=== PATIENT | female | born 1970 | race Caucasian/White ===

== ENCOUNTER 2020-06-30 14:49 | Outpatient (REF) | payer OTHER, SELFPAY ==
[2020-07-01 04:24] LABS: CT PCR NOT DETECTED (Not Detect.); NG PCR NOT DETECTED (Not Detect.)
[2020-07-01 09:33] LABS: BV Int Neg Control Negative (Negative); BV Int Pos Control Positive (Positive)
== END 2020-06-30 14:50 | disposition home or self-care (01) ==
LOC: HO.LAB 14:49
PROVIDERS: PCP Hospitalist; Visit Provider Obstetrics & Gynecology
DX: Z01.419 Encounter for gynecological examination (general) (routine) without abnormal findings (principal); N90.4 Leukoplakia of vulva; N63.20 Unspecified lump in the left breast, unspecified quadrant
CPT/HCPCS: 87480; 87491; 87510; 87591; 87660

== ENCOUNTER 2020-07-11 10:15 | Outpatient (REF) | payer OTHER, SELFPAY | END 2020-07-11 10:16 | disposition home or self-care (01) | LOC: HO.MAMMO 10:15 | PROVIDERS: PCP Hospitalist; Referring Provider Hospitalist; Visit Provider Surgery | DX: Z13.89 Encounter for screening for other disorder (principal) | CPT/HCPCS: 99202 ==

== ENCOUNTER 2020-07-23 08:02 | Outpatient (REF) | payer OTHER, SELFPAY | END 2020-07-23 08:03 | disposition home or self-care (01) | LOC: HO.LAB 08:02 | PROVIDERS: PCP Hospitalist; Visit Provider Obstetrics & Gynecology | DX: N90.4 Leukoplakia of vulva (principal) | CPT/HCPCS: 56605; 56606; 88305; 88312 ==

== ENCOUNTER 2020-07-25 12:49 | Outpatient (REF) | payer OTHER, SELFPAY ==
--- NOTE | 2020-07-25 12:52 | MM_ITS ---
EXAMINATION: MM DIAGNOSTIC DIGITAL BREAST TOMOSYNTHESIS, BILATERAL US DIAGNOSTIC ULTRASOUND BREAST, LEFT CLINICAL INFORMATION: New palpable mass posterior 4:00 left breast noted by patient 3-4 months. The lifetime risk of breast cancer based on the Tyrer-Cuzick Model is 11%. COMPARISON: Mammography: 06/16/2018, 06/14/2017, 06/01/2016, 05/28/2015 TECHNIQUE: Digital breast tomosynthesis is performed in both the craniocaudal and mediolateral oblique views along with computer-aided detection (CAD). Synthesized 2D images are generated from the tomosynthesis. Ultrasound left breast is targeted to the area of palpable concern posterior lower outer quadrant as well as a nodule more anteriorly outer left breast noted on mammography. Residual imaging and color Doppler are performed without and with harmonics. Patient is able to point to the area of concern at time of imaging. FINDINGS: Mammography: There are scattered areas of fibroglandular density (ACR BI-RADS breast composition Category b). The right breast is unremarkable. There is no interval mass or architectural abnormality. Neither breast shows abnormal calcifications. The bilateral axilla and skin contours are unremarkable. The left breast has a new circumscribed oval mass close to skin posterior 4:00 position corresponding to the palpable concern and measuring 1.2 x 1.0 x 0.9 cm. The left breast also has a new smaller circumscribed nodule more anteriorly left 3:30 o'clock position measuring 0.8 x 0.5 x 0.5 cm. Ultrasound: Ultrasound left breast targeted to the area of palpable concern demonstrates a circumscribed hypoechoic nodule at the deep dermis 5:00 position, 15 cm from nipple, measuring 1.2 x 1.1 x 0.8 cm. There are low level internal echoes and increased through-transmission of sound without peripheral or internal color flow. Subtle claw sign is demonstrated at the interface of the nodule with the deep dermis consistent with an intradermal lesion. This most likely represents a sebaceous or epidermal cyst. Additional imaging more anteriorly outer left breast demonstrates a hypoechoic circumscribed nodule 4:00 position 6 cm from nipple measuring 0.8 x 0.5 x 0.5 cm. Lesion is taller than wide. There is no increased through-transmission of sound. No associated color flow. This corresponds to the other new nodule left breast noted on mammography. Management recommendations: Results are discussed with the patient at time of visit. The palpable nodule posterior outer left breast corresponds to a benign intradermal lesion, likely sebaceous cyst or epidermal cyst. This would be amenable to surgical excision if clinically indicated. The smaller nodule left 4:00 position could represent a cyst although it is taller than wide and without increased through-transmission of sound. Recommend ultrasound-guided fine-needle aspiration to confirm a cyst. If this will not aspirate, then core sampling is recommended. Results are called to office ([facility]) for Dr. Mock on 07/25/2020. MM/MM tomosynthesis diagnostic BI IMPRESSION: 1. Left: Benign appearing sebaceous or epidermal cyst posterior outer breast corresponding to the area of palpable concern. There is a smaller circumscribed nodule more anteriorly outer left breast which although may represent a cyst but is without increased through-transmission of sound and has taller than wide orientation. 2. Right: No mammographic evidence of malignancy. ASSESSMENT: BI-RADS 4: Suspicious (subcategory 4A: Low suspicion for malignancy) RECOMMENDATION: 1. Palpable nodule posterior outer left breast may be managed based on the clinical impression. This would be amenable to surgical excision if clinically indicated. 2. Ultrasound-guided fine-needle aspiration smaller nodule left breast recommended to confirm a cyst. If the lesion will not aspirate, then conversion of procedure to core sampling would be recommended at same visit. This patient's information was entered into a reminder system with a target due date for their next mammogram.
== END 2020-07-25 12:50 | disposition home or self-care (01) ==
LOC: HO.MAMMO 12:49
PROVIDERS: PCP Hospitalist; Visit Provider Obstetrics & Gynecology
DX: N63.20 Unspecified lump in the left breast, unspecified quadrant (principal)
CPT/HCPCS: 76642; 77062; 77066

== ENCOUNTER → 2020-07-31 10:02 | Outpatient (BNVA) | payer OTHER, SELFPAY | PROVIDERS: PCP Hospitalist; Visit Provider Surgery | DX: R92.8 Other abnormal and inconclusive findings on diagnostic imaging of breast (principal) | CPT/HCPCS: 99202 ==

== ENCOUNTER 2020-08-05 07:58 | Outpatient (REF) | payer OTHER, SELFPAY ==
--- NOTE | 2020-08-05 | MM_ITS ---
EXAMINATION: US ULTRASOUND-GUIDED CYST ASPIRATION BREAST, LEFT MM DIAGNOSTIC DIGITAL MAMMOGRAPHY, LEFT CLINICAL INFORMATION: New circumscribed nodule left 3:30 o'clock position just under 1 cm, taller than wide and without increased through transmission of sound on targeted ultrasound. Aspiration recommended to confirm cyst and exclude solid lesion. COMPARISON: Mammography 07/25/2020, 06/16/2018; targeted left breast ultrasound 07/25/2020 FINDINGS: Proper informed consent is obtained from the patient after discussion of the procedure, potential risks and complications, and alternatives. Patient was given an opportunity for questions. The patient appeared to understand. The patient consented to the procedure and signed the consent form. LOCATION: Outer left breast 3:00-4:00 position, approximately 6 cm from nipple. GUIDANCE: Ultrasound-guided; aseptic technique. LESION: Circumscribed nearly anechoic nodule taller than wide measuring under 1 cm. APPROACH: Oblique lateral medial ANESTHESIA: 6 mL 1% lidocaine NEEDLE: 18-gauge spinal needle. ASPIRATION: The lesion resolved on puncture. Small amount of brown fluid aspirated into hub. Fluid discarded as per local practice. DIAGNOSTIC DIGITAL MAMMOGRAPHY, LEFT Left digital mammography is performed in CC and ML views. Computer assisted detection performed. FINDINGS: There are scattered areas of fibroglandular density (ACR BI-RADS breast composition Category b). The nodule anterior lateral left breast is no longer demonstrated consistent with the ultrasound-guided aspiration today. The sebaceous/epidermal cyst more posteriorly is beyond the [id number]. No gross hematoma. MM/MM diagnostic mammo unilat LT IMPRESSION: Incidental cyst anterior 3:00 position 4:00 left breast, resolved on aspiration. ASSESSMENT: BI-RADS 2: Benign RECOMMENDATION: Routine annual mammography screening. This patient's information was entered into a reminder system with a target due date for their next mammogram.
--- NOTE | 2020-08-05 08:04 | US_ITS ---
EXAMINATION: US ULTRASOUND-GUIDED CYST ASPIRATION BREAST, LEFT MM DIAGNOSTIC DIGITAL MAMMOGRAPHY, LEFT CLINICAL INFORMATION: New circumscribed nodule left 3:30 o'clock position just under 1 cm, taller than wide and without increased through transmission of sound on targeted ultrasound. Aspiration recommended to confirm cyst and exclude solid lesion. COMPARISON: Mammography 07/25/2020, 06/16/2018; targeted left breast ultrasound 07/25/2020 FINDINGS: Proper informed consent is obtained from the patient after discussion of the procedure, potential risks and complications, and alternatives. Patient was given an opportunity for questions. The patient appeared to understand. The patient consented to the procedure and signed the consent form. LOCATION: Outer left breast 3:00-4:00 position, approximately 6 cm from nipple. GUIDANCE: Ultrasound-guided; aseptic technique. LESION: Circumscribed nearly anechoic nodule taller than wide measuring under 1 cm. APPROACH: Oblique lateral medial ANESTHESIA: 6 mL 1% lidocaine NEEDLE: 18-gauge spinal needle. ASPIRATION: The lesion resolved on puncture. Small amount of brown fluid aspirated into hub. Fluid discarded as per local practice. DIAGNOSTIC DIGITAL MAMMOGRAPHY, LEFT Left digital mammography is performed in CC and ML views. Computer assisted detection performed. FINDINGS: There are scattered areas of fibroglandular density (ACR BI-RADS breast composition Category b). The nodule anterior lateral left breast is no longer demonstrated consistent with the ultrasound-guided aspiration today. The sebaceous/epidermal cyst more posteriorly is beyond the [id number]. No gross hematoma. US/US breast cyst asp LT IMPRESSION: Incidental cyst anterior 3:00 position 4:00 left breast, resolved on aspiration. ASSESSMENT: BI-RADS 2: Benign RECOMMENDATION: Routine annual mammography screening. This patient's information was entered into a reminder system with a target due date for their next mammogram.
== END 2020-08-05 07:59 | disposition home or self-care (01) ==
LOC: HO.MAMMO 07:58
PROVIDERS: PCP Hospitalist; Visit Provider Surgery
DX: R92.8 Other abnormal and inconclusive findings on diagnostic imaging of breast (principal)
CPT/HCPCS: 19000; 77065

== ENCOUNTER → 2020-08-12 14:47 | Outpatient (BNVA) | payer OTHER, SELFPAY | PROVIDERS: PCP Hospitalist; Visit Provider Surgery | DX: N63.20 Unspecified lump in the left breast, unspecified quadrant (principal) | CPT/HCPCS: 99212 ==

== ENCOUNTER → 2020-08-20 13:45 | Outpatient (BNVA) | payer OTHER, SELFPAY | PROVIDERS: PCP Hospitalist; Visit Provider Obstetrics & Gynecology | DX: Z76.89 Persons encountering health services in other specified circumstances (principal) ==

== ENCOUNTER 2020-08-21 11:48 | Outpatient (REF) | payer OTHER, SELFPAY ==
[2020-08-21 11:42] VITALS: BP 175/82; PULSE 76; RESP 19; TEMP 36.4; O2SAT 100; BMI 33.8
--- NOTE | 2020-08-21 13:07 | MHC.SHP ---
Pre-Procedural Eval Section A The patient is an INPATIENT: No Changes since office visit: Yes Patient answered all questions; No Cold of Flu in the past 2 weeks, No New Medical Problems and No Changes in Medication The History & Physical has been completed within 30 days and I have reviewed it.: Yes Section B Chief Complaint: left breast lump Allergies: Allergies Allergy/AdvReac Type Severity Reaction Status Date / Time No Known Allergies Allergy Unverified 08/20/20 13:46 Plan Diagnosis/Plan: Unchanged I have reviewed the history and physical and performed a pertinent physical examination on my patient. No changes have occurred unless specified.
--- NOTE | 2020-08-21 13:07 | PM.OP ---
Brief Operative Note Date of Service: 08/21/20 Pre-op diagnosis: Inclusion cyst left breast Post-op diagnosis: same Procedure: Excision of inclusion cyst left breast Implants: none Surgeon: Jeancarlos Braun MD Anesthesia: local Estimated blood loss (mL): 0 Pathology: other (inclusion cyst left breast) Condition: stable Disposition: other (home)
--- NOTE | 2020-08-21 13:08 | P.OP_ITS ---
Operative Note Operative Note Date of Service: 08/21/20 Narrative: Preoperative diagnosis: Epidermal inclusion cysts left breast Postoperative diagnosis: Same Procedure: Excision of epidermal inclusion cyst left breast Surgeon Jeancarlos Braun Anesthesia: Indications for procedure: 50-year-old female presenting with a palpable mass in the lower breast at the lower outer quadrant left side measuring approximately 1 cm in diameter. Workup with mammogram and ultrasound are consis tent with epidermal inclusion cyst. Patient presents for excision today. Operative findings: Patient was found to have a 1 cm round epidermal inclusion cyst Specimen: Epidermal inclusion cyst left breast Complications: None Estimated blood loss: None Procedure details: Patient was brought to the minor surgery suite placed in a supine position with her left arm over her head. The site of surgery as confirmed by the patient and informed consent confirmed. Skin was prepped with Betadine and draped in a sterile fashion. Local anesthesia consisting of lidocaine 1% with epinephrine was infiltrated over the cyst and elliptical fashion. Elliptical incision was then made with a scalpel carried out through subcutaneous tissue up to the cyst wall. Sharp dissection was then used to dis sect around the cyst wall. The lesion was excised and sent to pathology for further examination. After assuring adequate hemostasis the skin was closed using interrupted 4-0 nylon sutures. Sterile dressings consisting of 2 x 2 gauze and Tegaderm were then applied. The patient tolerated the procedure well. She was discharged to home in stable condition.
== END 2020-08-21 11:49 | disposition home or self-care (01) ==
LOC: HO.MS 11:48
PROVIDERS: PCP Hospitalist; Visit Provider Surgery
PROC: (CPT 11402; principal; 2020-08-21 11:50)
DX: N60.02 Solitary cyst of left breast (principal); I10 Essential (primary) hypertension; F31.9 Bipolar disorder, unspecified; R76.11 Nonspecific reaction to tuberculin skin test without active tuberculosis; Z79.899 Other long term (current) drug therapy
CPT/HCPCS: 11402; 88304

== ENCOUNTER → 2020-08-29 09:05 | Outpatient (BNVA) | payer OTHER, SELFPAY | PROVIDERS: PCP Hospitalist; Visit Provider Surgery | DX: N60.02 Solitary cyst of left breast (principal) | CPT/HCPCS: 99212 ==

== ENCOUNTER 2021-01-28 16:21 | Emergency (ER) | payer OTHER, SELFPAY ==
[2021-01-28 17:19] VITALS: BP 203/85; PULSE 85; RESP 18; TEMP 36.3; O2SAT 100; BMI 35.6
--- NOTE | 2021-01-28 21:11 | ED_ITS ---
HPI - Headache General Chief Complaint: Headache Stated Complaint: MIGRAINE Time Seen by Provider: 01/28/21 20:31 Source: patient Mode of arrival: ambulatory Limitations: no limitations History of Present Illness HPI Narrative: 50-year-old female with a past medical history of hypertension and migraines here with complaint of left-sided headache times 24 hours with photophobia and nausea. The pain radiates into the posterior left side of the head and neck. It is very typical for her migraines. No vomiting, vision changes, weakness, numbness or tingling. Patient tells me that she unfortunately does not have a primary care doctor and is trying to get 1. She ran out of all of her medications for her blood pressure and migraine 6 months ago and has not been taking any daily medications. She tells me in the past she has been on Imitrex and this has helped her significantly for her migraines. She was taking losartan, hydrochlorothiazide and lisinopril for her blood pressure but has not taken these for greater than 6 months. Related Data Home Medications Medication Instructions Recorded Confirmed buspirone 10 mg tablet 10 mg PO BID 06/30/20 08/29/20 cyclobenzaprine 10 mg tablet 10 mg PO BID-TID PRN 06/30/20 08/29/20 gabapentin 300 mg capsule 300 mg PO TID 06/30/20 08/29/20 hydrochlorothiazide 25 mg tablet 25 mg PO DAILY 06/30/20 08/29/20 lidocaine 5 % topical patch 1 patch TOPICAL Q12H 06/30/20 08/29/20 losartan 50 mg tablet 50 mg PO DAILY 06/30/20 08/29/20 nabumetone 750 mg tablet 750 mg PO BID 06/30/20 08/29/20 omeprazole 20 mg capsule,delayed 20 mg PO DAILY 06/30/20 08/29/20 release sumatriptan succinate 25 mg tablet mg PO 06/30/20 08/29/20 Previous Rx's Medication Instructions Recorded clotrimazole-betamethasone 1 1 applic TOPICAL BID 5 Days #45 g 06/30/20 %-0.05 % topical cream fluconazole 150 mg tablet 150 mg PO ONCE 1 Days #1 tab 06/30/20 metronidazole 0.75 % vaginal gel 1 appful VAGINAL DAILY 5 Days #70 g 07/11/20 hydrochlorothiazide 25 mg PO DAILY #30 tab 01/28/21 sumatriptan succinate [Imitrex] See Rx Instructions .ROUTE 01/28/21 .COMPLEX #5 tab Allergies Allergy/AdvReac Type Severity Reaction Status Date / Time No Known Allergies Allergy Unverified 08/20/20 13:46 Review of Systems Review of Systems: Yes all other systems are reviewed and are negative Constitutional: Constitutional: Reports no additional constitutional complaints, Denies body ache(s), Denies chills, Denies fever(s), Reports headache(s) and Denies weakness Eyes: Eyes: Reports no additional eye complaints and Denies change in vision Comments: Photophobia ENT: Reports system reviewed and no additional complaints, except as documented, Denies dizziness, Reports headache(s), Denies nasal congestion, Denies nasal discharge and Denies neck pain Cardiovascular: Cardiovascular: Reports no additional cardiovascular complaints, Denies chest pain, Denies leg edema and Denies dyspnea Respiratory: Respiratory: Reports no additional respiratory complaints, Denies cough and Denies dyspnea Gastrointestinal: Gastrointestinal: Reports no additional gastrointestinal complaints, Denies abdominal pain, Denies diarrhea, Reports nausea and Denies vomiting Genitourinary: Genitourinary: Reports no additional female genitourinary complaints and Denies urinary incontinence Musculoskeletal: Musculoskeletal: Reports no additional musculoskeletal complaints, Denies back pain, Denies arthralgias, Denies joint swelling, Denies neck pain, Denies numbness and Denies tingling Integumentary/Breasts: Skin/Breast: Reports system reviewed and no additional complaints, except as docu and Denies rash Neurologic: Reports system reviewed and no additional complaints, except as documented, Denies Abnormal speech present, Denies dizziness, Reports headache(s), Denies numbness, Denies tingling and Denies weakness [facility] Past Medical History Attestation statement: The following information was validated with the patient. Source: old records reviewed and nursing notes reviewed Medical History Anxiety Bipolar 1 disorder Cyst of left breast Fibromyalgia HTN (hypertension) Insomnia Lichen sclerosus PPD positive Vulvar leukoplakia Surgical History History of tubal ligation Social History Social History Alcohol intake: current Alcohol intake frequency: holidays/special occasions only Advance Directives: No Advance Directives Information Provided: No Patient : No Sexual orientation: Straight/Heterosexual Gender identity: female Physical Exam Vital Signs: Vital Signs: Last Vital Signs Temp 97.4 F 01/28/21 17:19 Pulse 85 01/28/21 17:19 Resp 18 01/28/21 17:19 BP 203/85 H 01/28/21 17:19 Pulse Ox 100 01/28/21 17:19 Body Mass Index 35.6 Const: General: cooperative, healthy appearing, comfortable and no acute distress Orientation/consciousness: patient oriented x3 Limitations: no limitations HENMT: Head: Yes normal to inspection Ears: hearing grossly normal bilaterally General nose exam: Normal external nose present Face and sinus: Yes normal facial exam Mouth: Normal oral and palatal mucosa present Throat: Yes posterior oropharynx normal Eyes: General: appearance normal, both eyes and all related structures Pupils: Equal, round and reactive pupils present Neck: Neck: Yes normal visual inspection, Yes full ROM, Yes no lymphadenopathy and Yes no meningeal signs Chest: Chest palpation & inspection: normal inspection of the chest Resp: Effort & Inspection: normal respiratory effort Auscultation: clear to auscultation bilaterally Cardio: Rate: regular rate Rhythm: regular rhythm Peripheral pulses: Peripheral pulses 2+ throughout GI: Inspection: Yes normal to inspection Palpation (GI): Soft to palpation and nontender Auscultation: normal bowel sounds Back/Spine/Pelvis: Thoracic/Lumbar Spine: thoracic and lumbar spine normal to inspection Skin: General skin exam: no rashes or lesions noted Neuro: General: patient oriented x3, no meningeal signs, no focal motor deficits and normal sensation to monofilament Cranial nerves: Yes CN's II-XII intact bilaterally, Yes Equal, round and reactive pupils present, Yes Bilaterally intact EOM present, Yes Nystagmus not present, Yes Normal facial strength present and Yes Midline tongue present Cognition (Neuro): normal cognition Speech: No Abnormal speech present Gait exam (Neuro): Normal gait present Motor exam (neuro): 5/5 motor strength present throughout Sensory Exam: Normal double simultaneous stimulation for sensation Extrem: General: Yes normal to inspection Course Course Course Narrative: 50-year-old female here with left-sided migraine with nausea and photophobia which feels exactly like her migraines which she had been taking Imitrex were but unfortunately ran out and does not have a primary care doctor to refill her medications. She received a dose of Imitrex here in the emergency department and feels improved. She has normal neurological exam. She is mildly hypertensive but tells me she ran out of all her blood pressure medications and has not had them for greater than 6 months because she does not have a primary care doctor. We reviewed her medication list which included losartan, hydrochlorothiazide lisinopril. I am hesitant to prescribe all of her blood pressure medications as she has not had them for more than 6 months. We agreed to re-start a single blood pressure medication and she will call tomorrow morning to establish a primary care doctor. Reviewed worrisome signs and symptoms and when to return to the emergency department. Comfortable discharge home. MDM - Headache MDM Narrative Medical decision making narrative: Asymptomatic hypertension Differential Diagnosis Differential diagnosis: Likely migraine and tension headache Medical Records Attestation: I reviewed the patient's medical records. Lab Data Attestation: I reviewed the patient's lab results. Discharge Plan Discharge Clinical Impression: Migraine, Hypertension Patient Disposition: Home, Self-Care Instructions: Migraine Headache (ED), Hypertension (ED) Additional Instructions: Avoid migraine triggers increase fluids, rest YOU absolutely need to call your doctor for a follow-up to re-start your medications Prescriptions: New sumatriptan succinate [Imitrex] 25 mg tablet See Rx Instructions .ROUTE .COMPLEX Qty: 5 RF: 0 hydrochlorothiazide 25 mg tablet 25 mg PO DAILY Qty: 30 RF: 0 No Action metronidazole [Metrogel Vaginal] 0.75 % gel 1 appful vaginal DAILY 5 Days Qty: 70 RF: 0 hydrochlorothiazide 25 mg tablet 25 mg PO DAILY RF: 0 cyclobenzaprine 10 mg tablet 10 mg PO BID-TID PRN (Reason: muscle spasm) RF: 0 gabapentin 300 mg capsule 300 mg PO TID RF: 0 lidocaine 5 % adhesive patch,medicated 1 patch topical Q12H RF: 0 sumatriptan succinate 25 mg tablet PO RF: 0 nabumetone 750 mg tablet 750 mg PO BID RF: 0 losartan 50 mg tablet 50 mg PO DAILY RF: 0 omeprazole 20 mg capsule,delayed release(DR/EC) 20 mg PO DAILY RF: 0 buspirone 10 mg tablet 10 mg PO BID RF: 0 fluconazole 150 mg tablet 150 mg PO ONCE 1 Days Qty: 1 RF: 0 clotrimazole-betamethasone 1-0.05 % cream 1 applic topical BID 5 Days Qty: 45 RF: 0 Referrals: Angie Maldonado NP [Primary Care Provider] - 2 days Stand Alone Forms: Work/School Release Interventions: ED Discharge Assessment Last Done: 01/28/21 21:25 Discharge Date/Time: 01/28/21 21:26 Print Language: French
[2021-01-28] MEDS: SUMAtriptan succinate 50 MG TABLET PO (21:18)
== END 2021-01-28 21:26 | disposition home or self-care (01) ==
PROVIDERS: Emergency Provider Emergency Medicine; PCP Hospitalist
DX: G43.009 Migraine without aura, not intractable, without status migrainosus (principal); I10 Essential (primary) hypertension; Z79.899 Other long term (current) drug therapy
CPT/HCPCS: 99283